=== PATIENT | female | born 1970 | race Caucasian/White ===

== ENCOUNTER 2023-04-25 08:52 | Day surgery (SDC) | payer BC ==
[2023-04-24 11:20] VITALS: BMI 22.3
[2023-04-25] MEDS ORDERED: Oxymetazoline HCl 0.05% (30 ML BOT) ONE ×2 (09:27→10:08)
[2023-04-25 10:02] LABS: Hematocrit 41.4 % (36.0-47.0)
[2023-04-25] MEDS ORDERED: EPINEPHrine 1 MG/ML AMP ONE (10:08)
[2023-04-25] MEDS ORDERED: Bacitracin Zinc Ointment 30 gm TUBE ONE (10:08)
[2023-04-25] MEDS ORDERED: Lidocaine 1% (PF) 30 ML VIAL ONE (10:08)
[2023-04-25] MEDS ORDERED: SUGAMMADEX SODIUM 200 MG/2 ML VIAL ONE (10:11)
[2023-04-25] MEDS ORDERED: fentaNYL PF 100 MCG/2 ML SYRINGE ONE (10:11)
[2023-04-25] MEDS ORDERED: PROPOFOL 200 MG/20 ML VIAL ONE (10:37)
[2023-04-25] MEDS ORDERED: Dexamethasone 20 MG/5 ML VIAL ONE (10:37)
[2023-04-25] MEDS ORDERED: Rocuronium Bromide 10 MG/ML (10ML VIAL) ONE (10:37)
[2023-04-25] MEDS ORDERED: Lidocaine 1% PF 5 ML VIAL ONE (10:37)
[2023-04-25] MEDS ORDERED: Ondansetron PF 4 MG/2 ML Vial ONE (10:37)
[2023-04-25] MEDS ORDERED: Midazolam HCl 2 mg/2 ml Vial ONE (10:40)
[2023-04-25] MEDS ORDERED: Acetaminophen 500 MG TAB ONE (10:40)
[2023-04-25] MEDS ORDERED: fentaNYL 50 mcg/mL 1 mL Vial ONE ×2 (11:37→12:08)
[2023-04-25] MEDS ORDERED: Hydrocodone-Acetamin 15 ML UDCUP ONE (13:17)
== END 2023-04-25 13:30 | disposition home or self-care (01) ==
LOC: SDC 08:52
PROVIDERS: ATTEND Otolaryngology Plastic Surgery within the Head & Neck
PROC: 09BT8ZZ Excision of Left Frontal Sinus, Via Natural or Artificial Opening Endoscopic (ICD-10-PCS; principal; 2023-04-25)
PROC: 09BV8ZZ Excision of Left Ethmoid Sinus, Via Natural or Artificial Opening Endoscopic (ICD-10-PCS; principal; 2023-04-25)
PROC: 09BM8ZZ Excision of Nasal Septum, Via Natural or Artificial Opening Endoscopic (ICD-10-PCS; principal; 2023-04-25)
PROC: 09BR8ZZ Excision of Left Maxillary Sinus, Via Natural or Artificial Opening Endoscopic (ICD-10-PCS; principal; 2023-04-25)
PROC: 09BW8ZZ Excision of Right Sphenoid Sinus, Via Natural or Artificial Opening Endoscopic (ICD-10-PCS; principal; 2023-04-25)
PROC: 09BS8ZZ Excision of Right Frontal Sinus, Via Natural or Artificial Opening Endoscopic (ICD-10-PCS; principal; 2023-04-25)
PROC: 09BX8ZZ Excision of Left Sphenoid Sinus, Via Natural or Artificial Opening Endoscopic (ICD-10-PCS; principal; 2023-04-25)
PROC: 09BQ8ZZ Excision of Right Maxillary Sinus, Via Natural or Artificial Opening Endoscopic (ICD-10-PCS; principal; 2023-04-25)
PROC: 09BL8ZZ Excision of Nasal Turbinate, Via Natural or Artificial Opening Endoscopic (ICD-10-PCS; principal; 2023-04-25)
PROC: 09BU8ZZ Excision of Right Ethmoid Sinus, Via Natural or Artificial Opening Endoscopic (ICD-10-PCS; principal; 2023-04-25)
DX: J32.4 Chronic pansinusitis (principal); J34.3 Hypertrophy of nasal turbinates; J34.2 Deviated nasal septum; J34.89 Other specified disorders of nose and nasal sinuses
CPT/HCPCS: 36415; 85014; 93005; 93010; J0171; J1100; J2001; J2250; J2405; J2704; J3010